=== PATIENT | female | born 1990 | race Caucasian/White ===

== ENCOUNTER → 2017-08-03 15:55 | Outpatient (CLI) | payer OTHER, SELFPAY ==
[2017-08-17 15:22] LABS: HPV Reflexed? NOT INDICATED
== END ==
PROVIDERS: Visit Provider Obstetrics & Gynecology
DX: Z12.4 Encounter for screening for malignant neoplasm of cervix (principal); R30.0 Dysuria
CPT/HCPCS: 87086; 87088; 88175; G0145

== ENCOUNTER → 2018-02-13 18:26 | Outpatient (CLI) | payer OTHER, SELFPAY ==
[2018-02-13 23:13] LABS: Chlamydia Trachomatis by PCR Negative (Negative); Neisserai gonorrhoeae by PCR Negative (Negative); Probe Check PASS; Sample Adequacy Control PASS; Specimen Processing Control PASS
[2018-02-18 15:27] LABS: HPV Reflexed? NOT INDICATED
== END ==
PROVIDERS: Visit Provider Obstetrics & Gynecology
DX: Z32.01 Encounter for pregnancy test, result positive (principal); Z12.4 Encounter for screening for malignant neoplasm of cervix; Z11.3 Encounter for screening for infections with a predominantly sexual mode of transmission
CPT/HCPCS: 87491; 87591; 88175; G0145

== ENCOUNTER → 2018-02-28 14:41 | Outpatient (CLI) | payer OTHER, SELFPAY ==
[2018-02-28 16:14] LABS: Absolute Lymphocyte Count 1.63 X10^3/ul (0.83-4.51); Absolute Neutrophil Count 6.3 X10^3/uL (2.0-7.7); Basophil# 0.03 X10^3/uL; Basophil% 0.3 % (0-1); Eosinophil# 0.13 X10^3/uL; Eosinophils% 1.5 % (0-5); Hematocrit 38.4 % (37-47); Hemoglobin 12.8 g/dl (12.0-15.0); Lymphocyte # 1.63 X10^3/ul (4.0); Lymphocyte % 18.9 % (19-41); Mean Corp Hgb Conc 33.3 g/gl (32-36); Mean Corpuscular Hgb 28.9 pg (27.0-32.0); Mean Corpuscular Volume 86.7 fL (81-99); Monocyte# 0.54 X10^3/uL; Monocyte% 6.3 % (0-10); Neutrophil # 6.29 X10^3/uL (2.7-7.7); Neutrophil % 72.8 % (47-70); Platelet Count 185 K/mm3 (150-450); RBC Distribution Width CV 13.2 % (11.6-14.6); RBC Distribution Width SD 40.9 fl (35.1-43.9); Red Blood Count 4.43 M/mm3 (4.2-5.4); White Blood Count 8.6 K/mm3 (4.4-11.0)
[2018-02-28 16:21] LABS: POSITIVE COUNT NO; POSITIVE DIFFERENTIAL NO; POSITIVE MORPHOLOGY NO
[2018-02-28 16:53] LABS: Color, Urine Straw (Yellow); Glucose, Dipstick Normal (Normal); Ketone-Dipstick Negative (Negative); Leukocyte Esterase-Dipstick Negative /ul (Negative); Nitrite-Dipstick Negative (Negative); Occult Blood-Urine 10 /ul (Negative); Protein-Dipstick Negative (Negative); Urine Bilirubin Dipstick Negative (Negative); Urine Clarity Clear (Clear); Urine Urobilinogen Normal (Normal); Urine pH 6.5 (5.0 - 8.0)
[2018-02-28 17:05] LABS: Amphetamine Urine VISTA NEGATIVE (<1000 ng/mL); Barbiturate Urine VISTA NEGATIVE (< 200 ng/mL); Benzodiazepine Urine VISTA NEGATIVE (< 200 ng/mL); Cocaine Urine VISTA NEGATIVE (< 300 ng/mL); Ecstacy Urine VISTA NEGATIVE (< 500 ng/mL); Methadone Urine VISTA NEGATIVE (< 300 ng/mL); PCP Urine VISTA NEGATIVE (< 25 ng/mL); THC Urine VISTA NEGATIVE (< 50 ng/mL); Vista UDS pH Range 5
[2018-02-28 17:12] LABS: COTININE Drug Screen Negative (<200 ng/mL)
[2018-02-28 17:17] LABS: Thyroid Stim Hormone (TSH) 1.74 uIU/mL (0.358-3.74)
[2018-03-01 03:59] LABS: Prenatal RPR NONREACTIVE (NONREACTIVE)
[2018-03-01 10:59] LABS: HIV - WCH Non-Reactive (Nonreactive); Rubella IgG 100.7 IU/mL
[2018-03-03 11:19] LABS: HEPATITIS B SURFACE AG Negative (Negative); Hep C Antibodies <0.1 s/co ratio (0.0-0.9)
== END ==
PROVIDERS: Visit Provider Obstetrics & Gynecology
DX: Z34.81 Encounter for supervision of other normal pregnancy, first trimester (principal)
CPT/HCPCS: 36415; 80307; 81002; 84443; 85025; 86703; 86762; 86803; 87340

== ENCOUNTER → 2018-04-01 16:48 | Outpatient (CLI) | payer OTHER, SELFPAY | PROVIDERS: Visit Provider Obstetrics & Gynecology | DX: O26.891 Other specified pregnancy related conditions, first trimester (principal); R10.9 Unspecified abdominal pain; Z3A.00 Weeks of gestation of pregnancy not specified | CPT/HCPCS: 87086; 87088 ==

== ENCOUNTER → 2018-07-19 10:36 | Outpatient (CLI) | payer OTHER, SELFPAY ==
[2018-07-19 11:38] LABS: Hematocrit 31.5 % (37-47); Hemoglobin 10.3 g/dl (12.0-15.0); Mean Corp Hgb Conc 32.7 g/gl (32-36); Mean Corpuscular Hgb 29.5 pg (27.0-32.0); Mean Corpuscular Volume 90.3 fL (81-99); Mean Platelet Vol. 12.7 fl (6.2-12.0); Platelet Count 171 K/mm3 (150-450); RBC Distribution Width CV 13.3 % (11.6-14.6); RBC Distribution Width SD 43.2 fl (35.1-43.9); Red Blood Count 3.49 M/mm3 (4.2-5.4); White Blood Count 8.9 K/mm3 (4.4-11.0)
[2018-07-19 11:39] LABS: Scan Indicated on CBC? Y/N NO
[2018-07-19 11:49] LABS: Glucose Challenge Gest 1H 50g 94 mg/dL (70-140)
== END ==
PROVIDERS: Visit Provider Obstetrics & Gynecology
DX: Z34.83 Encounter for supervision of other normal pregnancy, third trimester (principal)
CPT/HCPCS: 36415; 82950; 85027; 86850

== ENCOUNTER → 2018-09-13 10:39 | Outpatient (CLI) | payer OTHER, SELFPAY | PROVIDERS: Visit Provider Obstetrics & Gynecology | DX: Z36.85 Encounter for antenatal screening for Streptococcus B (principal) | CPT/HCPCS: 87081 ==

== ENCOUNTER 2018-10-02 21:30 | Inpatient (IN) | payer OTHER, SELFPAY ==
[2018-10-02] MEDS: Lactated Ringers 1,000 ML 50 ML IV (22:40)
[2018-10-02 22:49] LABS: Absolute Lymphocyte Count 1.25 X10^3/ul (0.83-4.51); Absolute Neutrophil Count 7.6 X10^3/uL (2.0-7.7); Basophil# 0.02 X10^3/uL; Basophil% 0.2 % (0-1); Eosinophil# 0.07 X10^3/uL; Eosinophils% 0.7 % (0-5); Hematocrit 34.6 % (37-47); Hemoglobin 11.4 g/dl (12.0-15.0); Lymphocyte # 1.25 X10^3/ul (4.0); Lymphocyte % 13.1 % (19-41); Mean Corp Hgb Conc 32.9 g/gl (32-36); Mean Corpuscular Hgb 28.3 pg (27.0-32.0); Mean Corpuscular Volume 85.9 fL (81-99); Monocyte# 0.63 X10^3/uL; Monocyte% 6.6 % (0-10); Neutrophil # 7.56 X10^3/uL (2.7-7.7); Platelet Count 199 K/mm3 (150-450); RBC Distribution Width CV 15.2 % (11.6-14.6); RBC Distribution Width SD 47.5 fl (35.1-43.9); Red Blood Count 4.03 M/mm3 (4.2-5.4); White Blood Count 9.6 K/mm3 (4.4-11.0)
[2018-10-02 22:50] LABS: POSITIVE COUNT NO; POSITIVE DIFFERENTIAL NO; POSITIVE MORPHOLOGY NO
[2018-10-02 23:17] VITALS: BMI 29.9
[2018-10-03] MEDS: fentaNYL-bupivacaine (epidural) 100 ML BAG EPIDURAL (00:15)
[2018-10-03] MEDS: Oxytocin 30 units/NS 500 ml 30 UNITS/500 ML IV.SOLN 334 UNITS IV (01:05)
--- NOTE | 2018-10-03 01:26 | PCM.OB.VAG ---
Vaginal Delivery Maternal Presentation: Active Labor 39w1d ega admitted in active labor Amniotic Membrane Rupture Type: Artificial Rupture of Membrane time: 1205 Amniotic Fluid Description: Clear Final DARIELA: 10/08/18 Final DARIELA Source: US <20 weeks Gestational age: 39 Weeks and 2 Days Date of Procedure: 10/03/18 Pre-Operative Diagnosis: Labor Post-Operative Diagnosis: same Surgery/ Procedure Performed: Spontaneous Vaginal Delivery Anesthesiologist: Ilir Huang Type of Anesthesia: Epidural Description of Procedure: Admitted at 4 cm dilation with regular contractions. Uncomplicated . progressed to 6 cm then had epidural placed. After epidural was placed AROM was performed and at that point was 9 cm dilated. She progressed to FD then pushed for about 5 minutes to deliver a live male without complication. The nose and mouth were suctioned with bulb suction at delivery. The was an active cry shortly after delivery. Delayed cord clamping was employed. The cord was clamped and cut. The baby was then placed on mom's chest for skin to skin time. The placenta delivered spontaneously intact with an eccentrically located 3VC. The uterus contracted well. Inspection revealed a second degree posterior vaginal perineal tear which was repaired with 2-0 vicryl. A small right perurethral tear was repaired with 3-0 Rapide suture. Presentation: Vertex Placental Delivery Description: Spontaneous Placenta Disposition: [facility] Percentage of Placenta Abruption: 0 Cord Vessel Description: 3 Vessels Nuchal Cord Compression: Without compression Cord Entanglement: None Estimated Blood Loss: 250cc A gender: Male (1 minute): 8 (5 minute): 9 Episiotomy Description: None Laceration: Midline, Periurethral Extnsion/lac, Perineal Extension/lac, Vaginal Extension/lac, 1st degree, 2nd degree Medications given after delivery: IV Pitocin Complications: None
--- NOTE | 2018-10-03 01:34 | DCINST_ITS ---
Discharge Diet: No Restrictions Discharge Activity: Return to Normal Activity, May Drive, May Shower Return to work on:: 12/03/18 May shower in (days): 0 May resume sexual activity in: 4-6 weeks Call your doctor if your incision/area has: Sudden Increased Bleeding, Increased Pain/ Swelling, Foul Smelling Discharge Call your doctor if you observe: Fever of 101 or Higher, Inability to urinate, Inability to have a bowel movement, Using more than one pad per hour, Shortness of breath, Chest pain, Calf discomfort, Uncontrolled pain Cleanse incision/area with: Soap & Water Additional Instructions: If you experience any of the following, contact your healthcare provider. * Bleeding that soaks a pad every hour for 2 hours * Fever 100.4 or higher * Unrelieved incision or abdominal pain * Swelling, redness, discharge or bleeding from your incision or episiotomy site * Your incision begins to separate * Problems urinating (including inability to urinate or burning while urinating). * Visual changes * Severe headache * Flu-like symptoms * Pain or redness in one of both of your breasts * Pain, warmth, tenderness or swelling in your legs, especially the calf area * Frequent nausea and vomiting * Symptoms of depression or anxiety If you experience any of the following, call 911 or go to the nearest Emergency Room. * Chest pain * Problems breathing * Seizure activity * Partial or complete paralysis of a body part, slurred speech, weakness or drooping of the face, or a sudden inability to walk or hold your balance Allergies/Adverse Reactions: Allergies cat dander Allergy (Verified 04/14/16 18:59) Other dog dander Allergy (Verified 04/14/16 18:59) Other Medications to take at Discharge Calcium Carbonate [Tums] 1,000 mg PO Q4H PRN PRN 03/13/16 Pantoprazole Sodium [Protonix] 20 mg PO DAILY 03/13/16 Vits [Prenatabs FA ] 1 tablet PO DAILY 03/13/16 Ibuprofen [Motrin] 600 mg PO Q6H PRN PRN #30 tab 10/03/18 The following prescriptions were given: Ibuprofen [Motrin] 600 mg PO Q6H PRN PRN #30 tab PRN Reason: pain or cramping Please Follow Up With: Nagi Cuenca MD When: 6 weeks Test Results: Test results from this visit will be discussed in further detail at your follow- up appointment, if applicable. Proposed Discharge Date: 10/04/18
[2018-10-03] MEDS: Oxytocin 30 units/NS 500 ml 30 UNITS/500 ML IV.SOLN 167 UNITS IV (01:35)
[2018-10-03] MEDS: Ibuprofen 600 MG Tablet PO ×3 (04:06→19:32)
[2018-10-03 04:46] LABS: Hematocrit 31.5 % (37-47); Mean Corp Hgb Conc 31.7 g/gl (32-36); Mean Corpuscular Hgb 27.9 pg (27.0-32.0); Mean Corpuscular Volume 87.7 fL (81-99); Mean Platelet Vol. 12.8 fl (6.2-12.0); Platelet Count 192 K/mm3 (150-450); RBC Distribution Width CV 14.9 % (11.6-14.6); RBC Distribution Width SD 46.6 fl (35.1-43.9); Red Blood Count 3.59 M/mm3 (4.2-5.4)
[2018-10-03 04:47] LABS: Scan Indicated on CBC? Y/N NO
[2018-10-03] MEDS: Acetaminophen 500 MG Tablet 1000 MG PO ×2 (06:57→16:03)
--- NOTE | 2018-10-03 08:00 | PCM.PN.OB ---
Subjective: Some soreness. Some cramping. Bleeding appropriate. breast feeding. Objective: Afeb VSS Hgb stable. - Physical Exam General: Alert, Oriented x3, Cooperative, No apparent distress Lungs: Clear to auscultation, Normal air movement Cardiovascular: Regular rate, Regular Rhythm Abdomen: Soft, Non Tender, Non-Distended Extremities: No edema Skin: No rashes Neurological: Neuro grossly intact Psych/Mental Status: Normal Affect Comment: Lochia appropriate Weight: 186 lb Body Mass Index (BMI) 29.9 Intake and Output for Last 24 Hours 10/01/18 10/02/18 10/03/18 23:59 23:59 23:59 Output Total 1000 / 1000 Balance -1000 / -1000 Laboratory Tests Past 24 Hrs 10/02/18 10/02/18 10/02/18 22:40 22:40 22:40 WBC 9.6 RBC 4.03 L Hgb 11.4 L Hct 34.6 L MCV 85.9 MCH 28.3 MCHC 32.9 RDW 15.2 H RDW Differential 47.5 H Plt Count 199 MPV 13.0 H Immature Gran % (Auto) 0.400 Neut % (Auto) 79.0 H Lymph % (Auto) 13.1 L Schley % (Auto) 6.6 Eos % (Auto) 0.7 Baso % (Auto) 0.2 Absolute Neuts (auto) 7.6 Absolute Lymphs (auto) 1.25 Total Counted Not Reportable Blood Type A NEGATIVE Antibody Screen Not Reportable NEGATIVE Screen Baby's Blood Type Baby's JACKI 10/03/18 10/03/18 04:30 04:30 WBC 14.0 H RBC 3.59 L Hgb 10.0 L Hct 31.5 L MCV 87.7 MCH 27.9 MCHC 31.7 L RDW 14.9 H RDW Differential 46.6 H Plt Count 192 MPV 12.8 H Immature Gran % (Auto) Neut % (Auto) Lymph % (Auto) Schley % (Auto) Eos % (Auto) Baso % (Auto) Absolute Neuts (auto) Absolute Lymphs (auto) Total Counted Blood Type Antibody Screen Screen NEGATIVE Baby's Blood Type A POSITIVE Baby's JACKI NEGATIVE Medical Necessity - Tobacco Use Smoking Status: Never smoker Assessment/Plan Doing well on PP day#1. Continue routine PP care. bay's blood type A+ so will need rhogam prior to discharge.
--- NOTE | 2018-10-03 08:14 | NURSING ---
Patient given motrin for pain per patient request
--- NOTE | 2018-10-03 08:15 | NURSING ---
Patient still numb from epidural, unable to ambulate, straight cath x1 for 800cc clear yellow urine
[2018-10-03 09:00] VITALS: BP 109/67; PULSE 72; RESP 20; TEMP 36.6; O2SAT 95
[2018-10-03] MEDS: Prenatal Vits Tablet 1 TABLET PO (11:25)
[2018-10-03 12:09] VITALS: BP 114/63; PULSE 70; RESP 18; TEMP 37
[2018-10-03 16:16] VITALS: BP 115/68; PULSE 83; RESP 18; TEMP 36.5
[2018-10-03] MEDS: Senna/Docusate Sodium 1 Tablet PO (19:33)
[2018-10-03 20:25] VITALS: PULSE 73; RESP 16; TEMP 36.5; O2SAT 96
[2018-10-03] MEDS: Oxymetazoline 0.05% 1 SPRAY SPRAY.BTL NASAL (22:43)
[2018-10-04 00:45] VITALS: BP 110/62; PULSE 97; RESP 16; TEMP 36.9; O2SAT 97
[2018-10-04] MEDS: Acetaminophen 500 MG Tablet 1000 MG PO (03:05)
[2018-10-04 08:20] VITALS: BP 112/70; PULSE 69; RESP 16; TEMP 36.5
[2018-10-04] MEDS: Ibuprofen 600 MG Tablet PO (08:22)
--- NOTE | 2018-10-04 08:26 | PCM.PN.OB ---
Subjective: No specific complaints. Bleeding appropriate. Breast feeding. Objective: Afeb VSS - Physical Exam General: Alert, Oriented x3, Cooperative, No apparent distress Lungs: Clear to auscultation, Normal air movement Cardiovascular: Regular rate, Regular Rhythm Abdomen: Soft, Non Tender, Non-Distended Extremities: No edema Skin: No rashes Neurological: Neuro grossly intact Psych/Mental Status: Normal Affect Comment: Lochia light Vital Signs Temp Pulse Resp BP Pulse Ox 98.5 F 97 16 110/62 97 10/04/18 00:45 10/04/18 00:45 10/04/18 00:45 10/04/18 00:45 10/04/18 00:45 Oxygen Delivery Method Room Air Weight: 186 lb Body Mass Index (BMI) 29.9 Intake and Output for Last 24 Hours 10/02/18 10/03/18 10/04/18 23:59 23:59 23:59 Output Total 1000 / 1000 1575 / 1575 Balance -1000 / -1000 -1575 / -1575 Medical Necessity - Tobacco Use Smoking Status: Never smoker Assessment/Plan Dooing well on PP day#2. Cleared for discharge home today. Home going instructions and warnings given.
--- NOTE | 2018-10-04 08:28 | PCM.DC.SUM ---
Discharge Date and Diagnosis Date of Admission: 10/02/18 Date of Discharge: 10/04/18 - Primary Discharge Diagnosis S/P Hospital Course and Treatment Operations: None Procedures: - - Epidural, Summary of Care Provided: The patient is a 28 year old F [admitted at term in active labor. progressed rapidly to FD then pushed for a short time to deliver a live male without complication. Post course unremarkable. Discharged home on PP day#1-2.] - Physical Exam Vital Signs Temp Pulse Resp BP Pulse Ox 98.5 F 97 16 110/62 97 10/04/18 00:45 10/04/18 00:45 10/04/18 00:45 10/04/18 00:45 10/04/18 00:45 Oxygen Delivery Method Room Air Weight: 186 lb Body Mass Index (BMI) 29.9 Intake and Output for Last 24 Hours 10/02/18 10/03/18 10/04/18 23:59 23:59 23:59 Output Total 1000 / 1000 1575 / 1575 Balance -1000 / -1000 -1575 / -1575 Discharge Diet: No Restrictions Discharge Activity: Return to Normal Activity, May Drive, May Shower Return to work on:: 12/03/18 May shower in (days): 0 May resume sexual activity in: 4-6 weeks Call your doctor if your incision/area has: Sudden Increased Bleeding, Increased Pain/ Swelling, Foul Smelling Discharge Call your doctor if you observe: Fever of 101 or Higher, Inability to urinate, Inability to have a bowel movement, Using more than one pad per hour, Shortness of breath, Chest pain, Calf discomfort, Uncontrolled pain Cleanse incision/area with: Soap & Water Home Medications: Medications to take at Discharge Calcium Carbonate [Tums] 1,000 mg PO Q4H PRN PRN 03/13/16 RX: Pantoprazole Sodium [Protonix] 20 mg PO DAILY 03/13/16 RX: Vits [Prenatabs FA ] 1 tablet PO DAILY 03/13/16 RX: Ibuprofen [Motrin] 600 mg PO Q6H PRN PRN #30 tab 10/03/18 Following Prescrptions Were Given to Patient: RX: Ibuprofen [Motrin] 600 mg PO Q6H PRN PRN #30 tab PRN Reason: pain or cramping Please Follow Up With: Nagi Cuenca MD When: 6 weeks Disposition: Home Minutes spent on discharge:: 15 Patient Condition:: Good Medical Necessity - Tobacco Use Smoking Status: Never smoker Meaningful Use Info Meaningful Use Diagnoses (Choose all that apply): None applicable
[2018-10-04] MEDS: Prenatal Vits Tablet 1 TABLET PO (11:03)
[2018-10-04 13:00] VITALS: BP 115/72; PULSE 91; RESP 16; TEMP 36.6
== END 2018-10-04 13:15 | disposition home or self-care (01) | DRG 807 ==
PROVIDERS: Admitting Provider Obstetrics & Gynecology; Visit Provider Obstetrics & Gynecology
DX: O71.82 Other specified trauma to perineum and vulva (principal); Z37.0 Single live birth; O70.1 Second degree perineal laceration during delivery; Z3A.39 39 weeks gestation of pregnancy
CPT/HCPCS: 59025; 59050; 85025; 85027; 85461; 86850; 86900; 90384; 99218; J7120; G0378; J2790

== ENCOUNTER → 2020-07-27 | Outpatient (CLI) | payer OTHER, SELFPAY ==
[2020-07-30 20:23] LABS: HPV APTIMA, High Risk Negative (Negative); HPV Reflexed? YES, CHARGE PATIENT
== END | disposition home or self-care (01) ==
LOC: LABSPEC 09:33
PROVIDERS: Visit Provider Student in an Organized Health Care Education/Training Program
DX: Z12.4 Encounter for screening for malignant neoplasm of cervix (principal)
CPT/HCPCS: 87624; 88175; G0145

== ENCOUNTER 2021-09-20 16:46 | Outpatient (CLI) | payer OTHER, SELFPAY ==
[2021-09-20 18:11] LABS: Vitamin D,25 Hydroxy 25.4 ng/mL
[2021-09-20 18:50] LABS: Follicle Stimulating Hormone 5.7 mIU/mL; Luteinizing Hormone 7.4 mIU/mL; T4 Free Direct 0.93 ng/dL (0.76-1.46); Thyroid Stim Hormone (TSH) 1.55 uIU/mL (0.358-3.74)
== END 2021-09-20 23:59 | disposition home or self-care (01) ==
LOC: WOBLAB 16:47
PROVIDERS: Visit Provider Student in an Organized Health Care Education/Training Program
DX: N93.9 Abnormal uterine and vaginal bleeding, unspecified (principal)
CPT/HCPCS: 36415; 82306; 83001; 83002; 84146; 84439; 84443

== ENCOUNTER 2021-12-20 05:57 | Day surgery (SDC) | payer OTHER, SELFPAY ==
[2021-12-20 06:23] VITALS: BP 128/88; PULSE 67; RESP 16; TEMP 37.1; O2SAT 97; BMI 25.2
[2021-12-20 06:25] LABS: Internal QC Validated? YES +Cl - CLEAR BKGD; Pregnancy, Urine Negative Negative
[2021-12-20] MEDS: Lactated Ringers 1,000 ML 15 ML IV (06:28)
--- NOTE | 2021-12-20 06:58 | PCM.HP.OB ---
HPI - General HPI Narrative RITIKA VALDERRAMA, is a 31 F who presents for hysteroscopy, dilation and curettage endometrial ablation for abnormal uterine bleeding. Patient failed nonsurgical management. PFSH PFSH Medical History Celiac disease Dietary restriction History of steroid therapy Non-smoker Wears contact lenses Wears glasses Home Medications chlorpheniramine maleate [ChlorTabs] 8 mg PO DAILY 12/09/21 [History Last Taken Unknown] Allergy/AdvReac Type Severity Reaction Status Date / Time cat dander Allergy Other Verified 12/20/21 06:38 dog dander Allergy Other Verified 12/20/21 06:38 Surgical History History of esophagogastroduodenoscopy (EGD) Social History (Updated 12/20/21 @ 07:[address] Emelia Bella DO) Smoking Status: Never smoker substance use type: does not use History Elective abortions Hx Para 1 Spontaneous abortions Hx # Term Pregnancies Ectopic pregnancies Hx # Pregnancies Multiple births # of living children ROS Constitutional Constitutional: Denies fatigue, fever(s) or malaise ENT HEENT: Denies dizziness or headache(s) Cardiovascular Cardiovascular: Denies chest pain or dyspnea Respiratory/Chest Respiratory/Chest: Denies cough Gastrointestinal Gastrointestinal: Denies abdominal pain or bloating Genitourinary Genitourinary: Denies burning urination Musculoskeletal Musculoskeletal: Denies back pain or difficulty walking Integumentary Integumentary: Denies dry skin or hirsutism Neurologic Neurologic: Denies confusion, numbness or seizures Psychiatric Psychiatric: Denies anxiety Endocrine Endocrinology: Denies cold intolerance or heat intolerance Hematologic/Lymphatic Hematologic/Lymphatic: Denies easy bleeding Vital Signs Vital Signs Vital Signs: 12/20/21 06:23 Temperature 98.8 F Temperature Source Temporal Pulse Rate 67 Respiratory Rate 16 Respiratory Pattern Normal Blood Pressure 128/88 H Blood Pressure Mean 101 Blood Pressure Source Monitor Blood Pressure Position Semi-Fowlers Blood Pressure Location Left Arm Pulse Ox 97 Oxygen Delivery Method Room Air Weight Weight: 70.851 kg Body Mass Index (BMI) 25.2 Physical Exam Const alert, oriented x3 and no apparent distress HEENT normocephalic Head and Scalp: atraumatic Eyes PERRL Resp normal respiratory effort and clear to auscultation bilaterally Cardio regular rate and regular rhythm GI normal to inspection, nondistended, normoactive bowel sounds Extremity no pedal edema Skin no rashes or lesions noted Neuro no focal motor deficits and no sensory deficits noted Motor Exam: strength 5/5 throughout Psych mental status grossly normal and affect normal Labs Labs Labs: Blood Type A NEGATIVE Antibody Screen NEGATIVE Hct 31.5 % (37-47) L Hgb 10.0 g/dl (12.0-15.0) L Rubella IgG Antibody 100.7 IU/mL Hep Bs Antigen Negative (Negative) HIV 1&2 Antibody Non-Reactive (Nonreactive) Glucose 1 Hr 50 gm 94 mg/dL (70-140) Group B Strep DNA Negative (Negative) Rhogam given: Yes Assessment & Plan (1) Abnormal uterine bleeding: PLAN: 31-year-old plan for hysteroscopy, dilation curettage, endometrial ablation with Hansa device for abnormal uterine bleeding. Risk, benefits, alternatives discussed the patient. Risks of but are not limited to: Risk of bleeding to the point of transfusion, infection, injury to surrounding tissue including bowel/bladder/uterine perforation, VTE, ICU admission. Patient aware and consented.
--- NOTE | 2021-12-20 07:03 | DCINST_ITS ---
Discharge Instructions Diet Discharge Diet: No restrictions Activity Discharge Activity: Return to Normal Activity and May Shower May resume sexual activity in: 2 weeks Weight Bearing Status: Weight bearing as tolerated Lifting Restrictions: None Dressing / Incision Call your doctor if you observe: Fever of 101 or Higher, Change in Color, Inability to urinate, Using more than 1 pad per hour, Shortness of breath, Dizziness, Swelling in the ankles, Chest pain and Calf discomfort Follow Up Care Please Follow Up With: Emelia Bella DO When: 1-2 week postoperative visit Test Results: Test results from this visit will be discussed in further detail at your follow-up appointment, if applicable. Discharge Plan Admission Primary Reason for Your Visit: Ablation Attending Provider: Emelia Bella Discharge Orders/Prescriptions Prescriptions: No Action chlorpheniramine maleate [ChlorTabs] 4 mg tablet 8 mg PO DAILY RF: 0 Referrals / Follow Up: ALPHONSO NIFANTE SOCIAL SCIENCE RESEARCH ASSISTANT [Other] Disposition Disposition (needs filled in before D/C Order can be placed): Home, Self Care
--- NOTE | 2021-12-20 07:03 | OP.PCM_ITS ---
Report of Operation Date of Procedure: 12/20/21 Pre-Operative Diagnosis: Abnormal uterine bleeding Post-Operative Diagnosis: Abnormal uterine bleeding Surgery/Procedure Performed:: Hysteroscopy, dilation and curettage, endometrial ablation with Hansa Description of Surgical Findings:: Normal-appearing external genitalia. Minimal uterine descensus. Fluffy endometrial cavity. Type of Anesthesia: MAC Specimen's removed: Endometrial curettings Estimated Blood Loss (mL): 5 cc Fluids Replaced: 900 cc Description of Procedure: Indications/risks/benefits: 31-year-old plan for hysteroscopy, dilation curettage, endometrial ablation with Hansa device for abnormal uterine bleeding. Risk, benefits, alternatives discussed the patient. Risks of but are not limited to: Risk of bleeding to the point of transfusion, infection, injury to surrounding tissue including bowel/bladder/uterine p erforation, VTE, ICU admission. Patient aware and consented. Procedure: Patient taken to the operating room, MAC anesthesia induced. Patient placed in the dorsal lithotomy position and prepped and draped in the usual sterile fashion. Weighted speculum placed in posterior vagina and Verdin retractor used to visualize the cervix. Anterior lip of the cervix grasped with Allis clamp. Cervix sequentially dilated. Hysteroscope placed through cervical canal and endometrial cavity inspected with findings above. Uterus sounded to 8 cm, cervical length 4 cm. Hansa opened. Hansa device placed through cervical canal and deployed. Cavity assessments passed. Ablation completed. Hansa device removed. Allis clamp removed. Cervix hemostatic. Weighted speculum removed. At the end the procedure all needle, lap, sponge counts correct x2. Urine output: 100 cc Complications None
--- NOTE | 2021-12-20 07:30 | EMB_PTH ---
PATIENT: RITIKA VALDERRAMA [place] [facility] [id number] AGE/SX: 31/F ROOM: RE12/20/[address]: Dr. Emelia Bella, : 1990 BED: DIS: 12/20/2021 SPEC #: [id number] RECD: 12/20/21 11:43 STATUS: CHRISTEL JOSE #: [id number] MARIO: 12/20/21 07:[address]: Emelia Bella DEPT: SURGICAL PATHOLOGY RECD BY: Klever Lunsford Tissues: Endometrium, NOS Procedures: Surgery Specimen Level IV HEADER OPERATION: Hysteroscopy, D & C Hansa PRE-OP DIAGNOSIS: Abnormal uterine bleeding TISSUE SUBMITTED: Endometrial curettings MICROSCOPIC DIAGNOSIS Endometrium, curettings: Transition endometrium. Desquamated benign squamous epithelial cells with bacterial colonies. Polypoid fragment of simple hyperplasia without atypia. AM:josé 12/21/2021 MICROSCOPIC DESCRIPTION Slides are reviewed. GROSS DESCRIPTION Received in fixative is one container labeled with the patient's name and designated endometrial curettings. The specimen consists of multiple irregular fragments of riojas-pink soft tissue that in aggregate measure 3 x 2.5 x 0.3 cm. The specimen is totally submitted in one cassette. / SJ:josé 12/20/2021 TC:5 CPT: 48392
[2021-12-20 08:15] VITALS: BP 121/68; BP 128/88; PULSE 65; RESP 16; TEMP 36.6; O2SAT 97
[2021-12-20 08:20] VITALS: BP 109/75; BP 128/88; PULSE 67; RESP 16; O2SAT 98
[2021-12-20 08:25] VITALS: BP 118/79; BP 128/88; PULSE 60; RESP 16; O2SAT 98
[2021-12-20 08:29] VITALS: BP 112/65; BP 128/88; PULSE 76; RESP 16; TEMP 36.2; O2SAT 99
[2021-12-20] MEDS: HYDROcodone Bitartrate/Apap 5/325 Tablet PO (09:36)
[2021-12-20 09:39] VITALS: BP 113/72; BP 128/88; PULSE 76; RESP 16; TEMP 36.4; O2SAT 95
== END 2021-12-20 09:59 | disposition home or self-care (01) ==
LOC: SDC 05:57 → AC 05:57
PROVIDERS: Anesthesiology; Visit Provider Student in an Organized Health Care Education/Training Program
PROC: 0U5B8ZZ Destruction of Endometrium, Via Natural or Artificial Opening Endoscopic (ICD-10-PCS; CPT 58558; principal; 2021-12-20 07:15)
DX: N85.01 Benign endometrial hyperplasia (principal); N84.0 Polyp of corpus uteri
CPT/HCPCS: 58558; 81025; 88305; J7120; J2405

== ENCOUNTER 2022-04-20 05:30 | Day surgery (SDC) | payer OTHER, SELFPAY ==
[2022-04-14 15:31] LABS: Hematocrit 40.1 % (37-47); Hemoglobin 13.3 g/dL (12.0-15.0); Mean Corp Hgb Conc 33.2 g/dL (32-36); Mean Corpuscular Hgb 29.7 pg (27.0-32.0); Mean Corpuscular Volume 89.5 fL (81-99); Mean Platelet Vol. 12.6 fl (6.2-12.0); Platelet Count 208 K/mm3 (150-450); RBC Distribution Width CV 12.6 % (11.6-14.6); RBC Distribution Width SD 41.6 fl (35.1-43.9); Red Blood Count 4.48 M/mm3 (4.2-5.4); White Blood Count 6.9 K/mm3 (4.4-11.0)
[2022-04-14 15:51] LABS: Magnesium 2.4 mg/dL (1.6-2.6)
[2022-04-20] VITALS (11 sets, daily range): BP systolic 101–120; BP diastolic 52–72; PULSE 56–87; RESP 16–18; TEMP 36.1–36.9; O2SAT 98–110; BMI 25.5
[2022-04-20 06:12] LABS: Internal QC Validated? YES +Cl - CLEAR BKGD; Pregnancy, Urine Negative Negative
[2022-04-20] MEDS: Lactated Ringers 1,000 ML 40 ML IV ×3 (06:22→12:52)
[2022-04-20] MEDS: Acetaminophen 500 MG Tablet 1000 MG PO (06:23)
[2022-04-20] MEDS: Gabapentin 600 MG Tablet PO (06:23)
--- NOTE | 2022-04-20 07:10 | PCM.HP.BLA ---
History and Physical Date of Admission: 04/20/22 HPI: 31-year-old female presenting for total laparoscopic hysterectomy, bilateral salpingectomy, cystoscopy for persistent abnormal uterine bleeding and endometrial hyperplasia. Denies fevers or chills, nausea or vomiting, headache or vision changes, dizziness, chest pain or shortness of breath, diarrhea or constipation, skin changes. Medical history: Denies Surgical history: 1. Endoscopy 2020 2. Ablation 2021 Allergies: Pet dander Medications:Chlor- Trimenton as needed for allergies Family history: Noncontributory, significant for diabetes Social history: Denies tobacco, alcohol, drug use Review of system: Negative otherwise stated above Physical exam: Blood pressure 120/72, heart rate 78, respirations 16, temp 98.5 ?F, oxygen saturation 100% on room air General: No acute distress HEENT: Normocephalic/atraumatic Cardiorespiratory no increased effort, lungs clear to auscultation bilaterally, heart rate regular rate and rhythm Abdomen: Soft, nontender Extremities: No edema Neurological: No focal deficits, cranial nerves II through XII grossly intact Musculoskeletal: Strength 5 out of 5 throughout all extremities Preoperative labs within normal limits Assessment/plan: 31-year-old female plan for robotic assisted total laparoscopic hysterectomy, bilateral salpingectomy, cystoscopy for abnormal uterine bleeding and benign endometrial hyperplasia. All risk, benefits, alternatives discussed with patient. Risk include are not limited to: Risk of bleeding the point of transfusion, infection, injury to surrounding tissue including bowel/bladder/major abdominal vessels, VTE, ICU admission. Patient aware and consented.
[2022-04-20 07:15] LABS: Bedside Glucose 91 mg/dL (74-106)
--- NOTE | 2022-04-20 07:23 | DCINST_ITS ---
Discharge Instructions Diet Discharge Diet: No restrictions Activity Discharge Activity: Return to Normal Activity and May Shower May resume sexual activity in: 6 weeks Weight Bearing Status: Weight bearing as tolerated Lifting Restrictions: No greater than 25 pounds Dressing / Incision Call your doctor if your incision/area has: Continuous Slow Oozing, Increased Redness and Foul Smelling Discharge Call your doctor if you observe: Fever of 101 or Higher, Inability to urinate, Inability to have a bowel movement, Using more than 1 pad per hour, Shortness of breath, Swelling in the ankles, Chest pain and Uncontrolled pain Cleanse incision/area with: Soap & Water and Keep Dressing Clean & Dry Follow Up Care Please Follow Up With: Emelia Bella DO When: 2 weeks post operative appointment Test Results: Test results from this visit will be discussed in further detail at your follow- up appointment, if applicable. Discharge Plan Admission Primary Reason for Your Visit: Hysterectomy Attending Provider: Emelia Bella Primary Care Provider: ALPHONSO INFANTE CNP Discharge Orders/Prescriptions Prescriptions: New oxycodone 5 mg tablet 5 mg PO Q6H PRN (Reason: pain (scale score 7-10)) 5 Days Qty: 24 0RF Continued chlorpheniramine maleate [ChlorTabs] 4 mg tablet 8 mg PO PRN PRN (Reason: Allergy Symptoms) Label Comments: 1po qday Referrals / Follow Up: ALPHONSO INFANTE CNP [Other] Disposition Disposition (needs filled in before D/C Order can be placed): Home, Self Care
--- NOTE | 2022-04-20 07:23 | PCM.OPRPT ---
Report of Operation Date of Procedure: 04/20/22 Pre-Operative Diagnosis: Abnormal uterine bleeding, benign hyperplasia Post-Operative Diagnosis: Abnormal uterine bleeding, benign hyperplasia Surgery/Procedure Performed:: Robotic assisted total laparoscopic hysterectomy, bilateral salpingectomy, cystoscopy, lysis of adhesions Description of Surgical Findings:: Normal-appearing external genitalia, moderate uterine descensus. Normal-appearing bilateral fallopian tubes, ovaries, uterus. Filmy adhesions of bowel to left pelvic sidewall. Bilateral ureters noted. Type of Anesthesia: General Specimen's removed: Uterus, cervix, bilateral fallopian tubes Estimated Blood Loss (mL): 50cc Fluids Replaced: 1000cc Description of Procedure: Indications/risk/benefits: 31-year-old female with persistent abnormal uterine bleeding and benign hyperplasia plan for robotic assisted total laparoscopic hysterectomy, bilateral salpingectomy, cystoscopy. All risk, benefits, alternatives discussed with patient. Risk include but are not limited to: Risk of bleeding twin transfusion, infection, injury to surrounding tissue including bowel/bladder/major abdominal vessels, VTE, ICU admission. Patient were consented. Procedure: Patient taken to the operating room placed under general anesthesia. Patient placed in the dorsal lithotomy position and prepped and draped in the usual sterile fashion. Valente catheter placed. Weighted speculum placed in the posterior vagina and right angle retractor used to visualize the cervix. Anterior lip of the cervix grasped with single-tooth tenaculum. Cervix sequentially dilated, uterus sounded to 9 cm. 2 [id number] stitches placed at 3:00 and 9 o'clock position. Medium manipulator placed. Gloves were changed and attention turned to the anterior abdominal wall. 8 mm vertical supraumbilical incision made with scalpel. 5 mm trocar placed under direct visualization. Abdomen insufflated. Right and left lower quadrant incisions and trochars made under direct visualization. Left upper quadrant trocar placed under direct visualization. Supraumbilical trocar replaced with 8 mm robotic trocar. Robot docked. Inspection of abdominal cavity completed with findings noted above. Filmy adhesions of colon to left pelvic sidewall lysed with scissors. Left fallopian tube identified. From cornua to fimbriated end. Fimbriated end grasped. Fallopian tube dissected along the mesosalpinx using cautery and incising scissors. Left round ligament transected using monopolar cautery. Vesicouterine peritoneum identified and carried down to the cervix. Left utero-ovarian ligament coagulated and cut. Dissection carried down the left side of the uterus to the level of the uterine arteries. Attention then turned to the right side of the uterus. Right fallopian tube identified carried from cornua to fimbriated end. Fallopian tube transected along the mesosalpinx using cautery and scissors. Right round ligament identified and transected using monopolar cautery. Vesicouterine peritoneum identified and dissection of anterior leaf of the broad ligament carried down to the anterior cervix. Right utero-ovarian ligament coagulated and cut. Dissection carried down along the right side of the uterus to the level of the uterine arteries. Further dissection of the vesicouterine peritoneum away from the anterior cervix was completed with monopolar cautery and blunt dissection. This allowed the bladder to fall away from the anterior cervix. Right uterine artery then coagulated and cut, allowing the uterine arteries to fall away from the colpotomy cup. Left uterine arteries then coagulated cut in a similar fashion. Uterus anteverted and posterior colpotomy made. Extended circumferentially. Uterus and tubes removed through the vagina. Colpotomy closed with a running stitch. Pelvis suction irrigated noting hemostasis. Cystoscopy: Cystoscopy then completed. Valente catheter removed. Cystoscope placed through the urethra. Noting intact bladder dome and bilateral ureteral jets. Cystoscope removed and bladder drained. Intra-abdominal pressure dropped to 7 mmHg noting hemostasis and Georgie placed in the pelvis. Insufflation then stopped, trochars removed. Incisions closed with subcuticular stitch and skin glue. [place] procedure all needle, lap, sponge counts were correct. UOP: 100cc clear urine Complications None
--- NOTE | 2022-04-20 07:30 | HYST_PTH ---
PATIENT: RITIKA VALDERRAMA LOC: [facility] [place] U#:[id number] AGE/SX: 31/F ROOM: RE04/20/[address]: Dr. Emelia Bella DO : 1990 BED: DIS: 04/20/2022 SPEC #: [id number] RECD: 04/20/22 14:33 STATUS: CHRISTEL JOSE #: [id number] MARIO: 04/20/22 07:[address]: Emelia Bella DEPT: SURGICAL PATHOLOGY RECD BY: Klever Lnusford Tissues: Uterus, NOS Procedures: Surgery Specimen Level V HEADER OPERATION: ERAS, lap robotic hysterectomy, bilateral salpingectomy, lysis of adhesions PRE-OP DIAGNOSIS: Abnormal uterine bleeding, benign endometrial hyperplasia TISSUE SUBMITTED: Uterus, cervix, bilateral fallopian tubes MICROSCOPIC DIAGNOSIS Uterus, cervix, bilateral fallopian tubes, hysterectomy and bilateral salpingectomy: Cervix ? mild chronic inflammation. Endometrium ? focal area of weakly proliferative endometrium. - Extensive changes consistent with status post endometrial curettings. Myometrium - no pathologic diagnosis. Bilateral fallopian tubes - no pathologic diagnosis. SJ:josé 04/24/2022 COMMENT Please make reference to previous specimen ([id number]) endometrium, curettings with diagnosis of ?transitional endometrium, desquamated benign squamous epithelial cells with bacterial colonies and polypoid fragment of simple hyperplasia without atypia.? MICROSCOPIC DESCRIPTION Slides are reviewed. GROSS DESCRIPTION Received in fixative is one container labeled with the patient's name and designated uterus, cervix, bilateral fallopian tubes. The specimen consists of a hysterectomy specimen consisting of uterus with cervix and attached bilateral fallopian tubes. The uterus with cervix weighs 80 gm and measures 8.5 x 6 x 4 cm. The serosal surface is riojas, glistening. The ectocervical mucosa is unremarkable. The external os is oval in contour. The endocervical canal measures 3 cm in length and the endocervical mucosa is riojas, glistening and unremarkable. The triangular endometrial cavity measures 4 cm in length and 1.5 cm in width. The endometrium is riojas, glistening without any mass lesion and measures 0.1 cm in thickness. Sections of the uterine wall do not reveal any mass lesion and measures up to 2.2 cm in thickness. The right fallopian tube measures 6 cm in length and 0.5 cm in diameter. The fimbrial end is identified. Sections reveal unremarkable cut surfaces. The left fallopian tube is similar appearance to right and measures 6.5 cm in length and 0.6 cm in diameter. [employer] sections are submitted in 12 cassettes as follows: 1 - anterior cervix, 2 - posterior cervix, 3-6 - anterior uterine wall, 7-10 - posterior uterine wall (entire endometrium is submitted), 11 - right fallopian tube, 12 - left fallopian tube. / SJ:rg 04/21/2022 TC:5 CPT: 90578
[2022-04-20] MEDS: Cefazolin 2 GM in 0.9% Normal Saline 100 ML IV (07:36)
== END 2022-04-20 13:16 | disposition home or self-care (01) ==
LOC: SDC 05:31 → AC 05:38
PROVIDERS: Anesthesiology; Referring Provider Student in an Organized Health Care Education/Training Program; Visit Provider Student in an Organized Health Care Education/Training Program
PROC: 0UT90ZZ Resection of Uterus, Open Approach (ICD-10-PCS; CPT 58571; principal; 2022-04-20 07:10)
DX: N93.9 Abnormal uterine and vaginal bleeding, unspecified (principal); N85.01 Benign endometrial hyperplasia; N73.6 Female pelvic peritoneal adhesions (postinfective)
CPT/HCPCS: 58571; S2900; 00840; 36415; 81025; 82962; 83735; 85027; 86850; 86900; 86901; 88307; J7120; J2405; J3475

== ENCOUNTER → 2023-09-07 | Outpatient (CLI) | payer OTHER, SELFPAY ==
[2023-09-07 15:47] LABS: Absolute Lymphocyte Count 1.57 X10^3/uL (0.83-4.51); Absolute Neutrophil Count 7.2 X10^3/uL (2.0-7.7); Basophil# 0.04 X10^3/uL; Basophil% 0.4 % (0-1); Eosinophil# 0.18 X10^3/uL; Eosinophils% 1.9 % (0-5); Hemoglobin 13.1 g/dL (12.0-15.0); Lymphocyte # 1.57 X10^3/ul (0.83-4.51); Lymphocyte % 16.6 % (19-41); Mean Corp Hgb Conc 32.8 g/dL (32-36); Mean Corpuscular Hgb 28.9 pg (27.0-32.0); Mean Corpuscular Volume 88.3 fL (81-99); Mean Platelet Vol. 12.8 fl (6.2-12.0); Monocyte# 0.46 X10^3/uL; Monocyte% 4.9 % (0-10); NRBC Flagged by Analyzer 0 % (0-5); Neutrophil # 7.17 X10^3/uL (2.7-7.7); Platelet Count 204 K/mm3 (150-450); RBC Distribution Width CV 12.7 % (11.6-14.6); RBC Distribution Width SD 41.3 fl (35.1-43.9); Red Blood Count 4.53 M/mm3 (4.2-5.4); White Blood Count 9.4 K/mm3 (4.4-11.0)
[2023-09-07 16:05] LABS: Vitamin D,25 Hydroxy 61.1 ng/mL
[2023-09-07 16:35] LABS: ALB/GLOB Ratio 1.1 RATIO (0.9-2.4); AST(SGOT) 11 U/L (15-37); Alanine Aminotransfer ALT/SGPT 20 U/L (13-56); Albumin, Serum 3.9 g/dL (3.2-5.0); Alkaline Phosphatase 47 U/L (45-117); Anion Gap 4 (5-15); BUN 13 mg/dL (7-18); BUN/Creat Ratio 12.5 RATIO (10-20); Calcium,Total 9.5 mg/dL (8.5-10.1); Chloride 107 mmol/L (98-107); Creatinine, Serum 1.04 mg/dL (0.55-1.02); EST Glomerular Filtration Rate 65 mL/min (>60); Est Glom Filt Rate - Afr Amer 78 mL/min (>60); Free T3 2.2 pg/mL (2.18-3.98); Globulin 3.5 g/dL (2.2-4.2); Glucose 95 mg/dL (74-106); Iron 72 ug/dL (50-170); Iron Binding Capacity,Total 262 ug/dL (250-450); PERCENT IRON SATURATION 27.5 % (15.0-55.0); Potassium 3.8 mmol/L (3.5-5.1); Protein, Total 7.4 g/dL (6.4-8.2); Sodium Level 138 mmol/L (136-145); T4 Free Direct 0.95 ng/dL (0.76-1.46); Thyroid Stim Hormone (TSH) 1.77 uIU/mL (0.358-3.74)
[2023-09-11 15:08] LABS: Anti-Nuclear Antibody Test Positive (.)
[2023-09-14 10:09] LABS: Testosterone, % Free 3.03 % (0.50-2.80); Testosterone, Free 0.18 ng/dL (0.10-0.85); Testosterone, Total 6 ng/dL (8-60); Thyroid Peroxidase AB < 9 IU/mL (0-34); Zinc, Plasma or Serum 66 ug/dL (44-115)
== END | disposition home or self-care (01) ==
LOC: MTLAB 13:44
PROVIDERS: Referring Provider Physician Assistant Medical; Visit Provider Physician Assistant Medical
DX: L64.8 Other androgenic alopecia (principal)
CPT/HCPCS: 36415; 80053; 82306; 82627; 83540; 83550; 84402; 84403; 84439; 84443; 84481; 84630; 85025; 86038; 86376; 82626

== ENCOUNTER → 2023-10-31 | Outpatient (CLI) | payer OTHER, SELFPAY ==
[2023-10-31 15:11] LABS: EXAGEN MAILED SPECIMEN
[2023-10-31 17:37] LABS: Color, Urine Yellow (Yellow); Glucose, Dipstick Normal (Normal); Ketone-Dipstick Negative (Negative); Leukocyte Esterase-Dipstick Negative /ul (Negative); Nitrite-Dipstick Negative (Negative); Occult Blood-Urine 10 /ul (Negative); Protein-Dipstick Negative (Negative); Urine Bilirubin Dipstick Negative (Negative); Urine Clarity Sl. Cloudy (Clear); Urine Urobilinogen Normal (Normal)
[2023-10-31 17:38] LABS: Absolute Lymphocyte Count 1.72 X10^3/uL (0.83-4.51); Absolute Neutrophil Count 5.4 X10^3/uL (2.0-7.7); Basophil# 0.04 X10^3/uL; Basophil% 0.5 % (0-1); Eosinophil# 0.22 X10^3/uL; Eosinophils% 2.8 % (0-5); Hematocrit 40.3 % (37-47); Hemoglobin 13.4 g/dL (12.0-15.0); Lymphocyte # 1.72 X10^3/ul (0.83-4.51); Lymphocyte % 22.3 % (19-41); Mean Corp Hgb Conc 33.3 g/dL (32-36); Mean Corpuscular Hgb 29.3 pg (27.0-32.0); Mean Corpuscular Volume 88.2 fL (81-99); Mean Platelet Vol. 12.8 fl (6.2-12.0); Monocyte% 3.9 % (0-10); NRBC Flagged by Analyzer 0 % (0-5); Neutrophil # 5.42 X10^3/uL (2.7-7.7); Neutrophil % 70.2 % (47-70); Platelet Count 204 K/mm3 (150-450); RBC Distribution Width CV 12.6 % (11.6-14.6); RBC Distribution Width SD 40.8 fl (35.1-43.9); Red Blood Count 4.57 M/mm3 (4.2-5.4); White Blood Count 7.7 K/mm3 (4.4-11.0)
[2023-10-31 17:52] LABS: Protein, Urine (Random) 8.6 mg/dL (<11.9); Protein:Creat Ratio 122 mg/g CRE (0-200)
[2023-10-31 18:05] LABS: ALB/GLOB Ratio 1.1 RATIO (0.9-2.4); AST(SGOT) 14 U/L (15-37); Alanine Aminotransfer ALT/SGPT 24 U/L (13-56); Albumin, Serum 3.9 g/dL (3.2-5.0); Alkaline Phosphatase 47 U/L (45-117); Anion Gap 4 (5-15); BUN 15 mg/dL (7-18); BUN/Creat Ratio 15.9 RATIO (10-20); CRP 3.47 mg/L (0.0-3.0); Calcium,Total 9.3 mg/dL (8.5-10.1); Chloride 106 mmol/L (98-107); Creatinine, Serum 0.94 mg/dL (0.55-1.02); EST Glomerular Filtration Rate 72 mL/min (>60); Est Glom Filt Rate - Afr Amer 87 mL/min (>60); Globulin 3.5 g/dL (2.2-4.2); Glucose 91 mg/dL (74-106); Potassium 3.9 mmol/L (3.5-5.1); Protein, Total 7.4 g/dL (6.4-8.2); Sodium Level 139 mmol/L (136-145)
[2023-10-31 18:07] LABS: Burr Cells 7.7; Erythrocyte Sedimentation Rate 7 mm/hr (0-30)
[2023-11-03 15:08] LABS: Dilute Russell Viper Venom 37.1 sec (0.0-47.0); Interpretation Comment: (.); PTT-LA 34.1 sec (0.0-43.5); Thrombin Time 16.4 sec (0.0-23.0); dPT Confirm Ratio 1.17 Ratio (0.00-1.34)
== END | disposition home or self-care (01) ==
LOC: MTLAB 14:09
PROVIDERS: Referring Provider Internal Medicine Rheumatology; Visit Provider Internal Medicine Rheumatology
DX: M06.4 Inflammatory polyarthropathy (principal); R76.8 Other specified abnormal immunological findings in serum; K90.0 Celiac disease
CPT/HCPCS: 36415; 80053; 81002; 82570; 84156; 85025; 85652; 86140

== ENCOUNTER → 2024-02-04 | Outpatient (CLI) | payer OTHER, SELFPAY ==
[2024-02-04 12:20] LABS: Absolute Lymphocyte Count 1.31 X10^3/uL (0.83-4.51); Absolute Neutrophil Count 4.1 X10^3/uL (2.0-7.7); Basophil# 0.05 X10^3/uL; Basophil% 0.8 % (0-1); Eosinophil# 0.17 X10^3/uL; Eosinophils% 2.9 % (0-5); Hematocrit 41.3 % (37-47); Hemoglobin 13.3 g/dL (12.0-15.0); Lymphocyte # 1.31 X10^3/ul (0.83-4.51); Mean Corp Hgb Conc 32.2 g/dL (32-36); Mean Corpuscular Hgb 28.5 pg (27.0-32.0); Mean Corpuscular Volume 88.6 fL (81-99); Mean Platelet Vol. 12.5 fl (6.2-12.0); Monocyte# 0.33 X10^3/uL; Monocyte% 5.5 % (0-10); NRBC Flagged by Analyzer 0 % (0-5); Neutrophil # 4.09 X10^3/uL (2.7-7.7); Neutrophil % 68.6 % (47-70); Platelet Count 214 K/mm3 (150-450); RBC Distribution Width CV 12.5 % (11.6-14.6); RBC Distribution Width SD 40.8 fl (35.1-43.9); Red Blood Count 4.66 M/mm3 (4.2-5.4)
[2024-02-04 12:46] LABS: AST(SGOT) 14 U/L (15-37); Alanine Aminotransfer ALT/SGPT 20 U/L (13-56); Albumin, Serum 3.8 g/dL (3.2-5.0); Alkaline Phosphatase 50 U/L (45-117); Anion Gap 5 (5-15); BUN 13 mg/dL (7-18); BUN/Creat Ratio 14.4 RATIO (10-20); Calcium,Total 9.1 mg/dL (8.5-10.1); Chloride 107 mmol/L (98-107); EST Glomerular Filtration Rate 76 mL/min (>60); Est Glom Filt Rate - Afr Amer 92 mL/min (>60); Globulin 3.9 g/dL (2.2-4.2); Glucose 93 mg/dL (74-106); Potassium 4.5 mmol/L (3.5-5.1); Protein, Total 7.7 g/dL (6.4-8.2); Sodium Level 139 mmol/L (136-145)
== END | disposition home or self-care (01) ==
LOC: MTLAB 10:44
PROVIDERS: Referring Provider Internal Medicine Rheumatology; Visit Provider Internal Medicine Rheumatology
DX: M06.4 Inflammatory polyarthropathy (principal); R76.8 Other specified abnormal immunological findings in serum; K90.0 Celiac disease; L85.8 Other specified epidermal thickening; L64.9 Androgenic alopecia, unspecified; R51.9 Headache, unspecified; Z79.899 Other long term (current) drug therapy
CPT/HCPCS: 36415; 80053; 85025